=== PATIENT | male | born 1960 | race American Indian/Alaskan Native ===

== ENCOUNTER 2017-07-15 13:20 | Emergency (ER) | payer MEDICARE, OTHER ==
[~2017-07-15] VITALS: Ht 170.2 cm; Wt 81.8 kg
[~2017-07-15 13:20] MED LIST: ALBU8.5H8 INH; ALLO100T15 PO; AMLO2.5T2 PO; CALC-263 PO; CHOL10006; CYCL25CA8 PO; FLO0.1T PO; METO-395 PO; OMEP20TA23 PO; PRED5TAB PO; SODI650T29 PO; VENL150T3 PO
[2017-07-15 15:00] LABS: EOSINOPHILS # (AUTO) 0.1 X10'3 (0-0.9); EOSINOPHILS % (AUTO) 2.7 % (0-6); HEMATOCRIT 30.5 % (42.0-52.0); HEMOGLOBIN 10.7 g/dl (14.0-17.9); LYMPHOCYTES # (AUTO) 0.9 X10'3 (1.1-4.8); MEAN CORPUSCULAR HEMOGLOBIN 33.6 PG (27.0-31.0); MEAN CORPUSCULAR HGB CONC 35.1 % (33.0-36.5); MEAN PLATELET VOLUME 7.2 FL (7.4-10.4); MONOCYTES # (AUTO) 0.4 X10'3 (0-0.9); MONOCYTES % (AUTO) 11.3 % (2-12); PLATELET COUNT 160 X10'3 (140-440); RED BLOOD COUNT 3.17 X10'6 (4.70-6.10); RED CELL DISTRIBUTION WIDTH 16.4 % (11.5-14.5); WHITE BLOOD COUNT 3.5 X10'3 (4.5-11.0)
[2017-07-15 15:16] LABS: ALANINE AMINOTRANSFERASE 58 U/L (12-78); ALBUMIN 3.3 G/DL (3.4-5.0); ALBUMIN/GLOBULIN RATIO 0.8 (1.1-1.5); ALKALINE PHOSPHATASE 73 IU/L (46-116); ANION GAP 11 (8-16); ASPARTATE AMINO TRANSFERASE 76 U/L (10-37); BILIRUBIN,TOTAL 0.5 MG/DL (0.1-1.0); BLOOD UREA NITROGEN 30 MG/DL (7-18); BUN/CREATININE RATIO 12.2 (5.4-32.0); CALCIUM 8.8 MG/DL (8.5-10.1); CHLORIDE 109 MMOL/L (99-107); CREATININE 2.46 MG/DL (0.60-1.10); GLUCOSE 134 MG/DL (70-104); LIPASE 384 U/L (73-393); POTASSIUM 4.6 MMOL/L (3.5-5.1); SODIUM 144 MMOL/L (135-145); TOTAL CARBON DIOXIDE 24.5 MMOL/L (24-32); TOTAL PROTEIN 7.2 G/DL (6.4-8.2); eGFR 27 ML/MIN
[2017-07-15] MEDS ORDERED: CYCL25CA PO ×2 (16:58→20:38)
[2017-07-15] MEDS ORDERED: normal saline 1000ML IV soln IVB ONE (17:15)
[2017-07-15 17:24] LABS: CLARITY,URINE CLEAR (Clear); COLOR,URINE YELLOW (Yellow); GLUCOSE, URINE NEGATIVE (Neg); KETONES,URINE NEGATIVE (Neg); LEUKOCYTE ESTERASE ,URINE NEGATIVE (Neg); NITRITES, URINE NEGATIVE (Neg); OCCULT BLOOD,URINE NEGATIVE (Neg); PROTEIN,URINE TRACE mg/dl (Neg); UROBILINOGEN,URINE 0.2 E.U/dL (0.2-1.0)
[2017-07-15 17:25] LABS: UA COLLECTION TYPE VOIDED
[2017-07-15 17:30] LABS: BACTERIA,URINE 1+ /HPF (Neg); RBC,URINE 0-2 /HPF (0-2); SQUAMOUS EPITHELIAL CELL,UR FEW /LPF (FEW); WBC,URINE 0-4 /HPF (0-4)
[2017-07-15] MEDS ORDERED: oxyCODONE IR 5mg (immed. release) tablet PO ONE ×2 (17:35→19:50)
[2017-07-15 17:39] LABS: URINE AMPHETAMINE SCREEN NEGATIVE (Neg); URINE BARBITUATE SCREEN NEGATIVE (Neg); URINE BENZODIAZEPINES SCREEN NEGATIVE (Neg); URINE CANNABINOID SCREEN POSITIVE (Neg); URINE COCAINE SCREEN POSITIVE (Neg); URINE METHADONE SCREEN NEGATIVE (Neg); URINE OPIATE SCREEN NEGATIVE (Neg); URINE PHENCYCLIDINE SCREEN NEGATIVE (Neg)
[2017-07-15 18:38] LABS: ETHANOL < 0.010 GM/DL (0.0-0.010)
[2017-07-15 20:15] VITALS: BP 167/102
[2017-07-15] MEDS ORDERED: FURO40TA4 PO (20:38)
[2017-07-15] MEDS ORDERED: FLUD0.1T PO (20:38)
[2017-07-15] MEDS ORDERED: TAMS0.4C32 PO (20:38)
[2017-07-15] MEDS ORDERED: GABA-532 PO (20:38)
== END 2017-07-15 21:19 | disposition home or self-care (01) ==
LOC: ER 13:21
DX: N18.9 Chronic kidney disease, unspecified (principal); R10.9 Unspecified abdominal pain; F14.10 Cocaine abuse, uncomplicated; F12.10 Cannabis abuse, uncomplicated; J44.9 Chronic obstructive pulmonary disease, unspecified; I12.9 Hypertensive chronic kidney disease with stage 1 through stage 4 chronic kidney disease, or unspecified chronic kidney disease; Z90.49 Acquired absence of other specified parts of digestive tract; Z98.890 Other specified postprocedural states; Z56.0 Unemployment, unspecified; Z79.899 Other long term (current) drug therapy; Z94.4 Liver transplant status; Z91.14 Patient's other noncompliance with medication regimen
CPT/HCPCS: 36415; 80053; 80305; 80320; 81001; 82140; 83605; 83690; 85025; 96360; 99284; J7030